=== PATIENT | male | born 1945 ===

== ENCOUNTER → 2018-02-27 | Outpatient (CLI) | payer MEDICARE | END | disposition home or self-care (01) | LOC: ROC 02-24 11:53 | PROVIDERS: ATTEND Radiology Radiation Oncology | DX: Z08 Encounter for follow-up examination after completed treatment for malignant neoplasm (principal); C90.30 Solitary plasmacytoma not having achieved remission; S22.071A Stable burst fracture of T9-T10 vertebra, initial encounter for closed fracture; F17.210 Nicotine dependence, cigarettes, uncomplicated; X58.XXXA Exposure to other specified factors, initial encounter; Y93.89 Activity, other specified; Y92.89 Other specified places as the place of occurrence of the external cause; Y99.8 Other external cause status | CPT/HCPCS: 99214; G0463 ==

== ENCOUNTER → 2018-04-24 | Outpatient (CLI) | payer MEDICARE | END | disposition home or self-care (01) | LOC: EDSTATUS 04-17 09:16 → ROC 09:17 | PROVIDERS: ATTEND Radiology Radiation Oncology | DX: C90.30 Solitary plasmacytoma not having achieved remission (principal) | CPT/HCPCS: 99212; G0463 ==